=== PATIENT | male | born 1955 | race Caucasian/White ===

== ENCOUNTER → 2019-09-12 | Outpatient (CLI) | payer BC ==
--- NOTE | 2019-09-12 17:14 | CONS ---
CONSULTATION REASON FOR CONSULTATION: Sleep apnea. This is a 63-year-old male patient diagnosed having obstructive sleep apnea at least 10 years ago through [facility]. He underwent another sleep study a few years back through a sleep center in [place] and currently is using a ResMed AirSense CPAP unit which is set at a pressure of 9 cm of water. His baseline AHI is not known to me at this point, and we do not have any documentation on his original polysomnogram. He is coming to establish himself here at the sleep center. He lives locally in [place]. He has a history of RLS and currently is taking low-dose methadone and Horizant. As for his sleep apnea, the patient is compliant with his treatment. He has been utilizing his CPAP every night without any major difficulties. Based on the compliance data, the patient has been averaging around 6.1 hours of CPAP use per night and his CPAP use for more than 4 hours is above 70%. His leak is 42 L/minute and his AHI is down to 2.5. He is going to bed around midnight and wakes up at 7:00 in the morning. He is refreshed during the day. He does not fall asleep during day-to-day activities. He does not fall asleep while driving. He is restless in the lower extremities and he has been given different regimens. He failed Mirapex. The most successful regimen for him has been a combination of gabapentin and low-dose methadone. His current [place] score is 9. No recent weight gain or weight loss. No history of substance abuse. No history of alcoholism. No episodes of waking up in the middle of night choking or gasping for air. He is using a full-face mask. No snoring while on CPAP therapy. No chest pain, shortness of breath, palpitation, angina or heartburn. PAST MEDICAL HISTORY: 1. Obstructive sleep apnea. 2. Primary restless legs syndrome. 3. Hypertension. SURGICAL HISTORY: Surgical history includes left orbital reconstruction surgery and septum surgery. DRUG ALLERGIES: NOT KNOWN. OUTPATIENT MEDICATION LIST: Outpatient medication list includes methadone, Horizant, simvastatin and losartan. SOCIAL HISTORY: Nonsmoker. No history of alcoholism. No history of IV drugs. FAMILY HISTORY: Positive for the RLS. Negative for sleep apnea. Also hypertension runs in the family. REVIEW OF SYSTEMS: Fourteen-point review of systems was done. Positive findings were all mentioned above in the history of present illness. No sleep paralysis. No nightmares. No hallucinations. No cataplexy. No sleepwalking or sleeptalking. No anxiety or panic attacks. No palpitation. No heartburn. No shortness breath or chest pain during sleep. PHYSICAL EXAMINATION: VITAL SIGNS: BP is 149/89, pulse 69, respirations 16, temperature 98.2, saturation 99% on room air. [place] Score is 9. BMI is 35.2. Neck size is 16-3/4 inches. Weight is 232. Height is 5 feet 8 inches. GENERAL APPEARANCE: Calm, comfortable. HEAD: Atraumatic, normocephalic. NECK: Supple. No JVD. No goiter or neck masses. Mallampati class IV. LUNGS: Clear to auscultation. HEART: Heart sounds are regular rate and rhythm. Normal S1, S2. No S3, S4. No murmurs. ABDOMEN: Soft, nontender. No organomegaly. EXTREMITIES: No edema. No cyanosis or clubbing. NEUROLOGIC: Alert and oriented x3. No focal neurological deficits. PSYCHIATRIC: Negative for anxiety or depression. IMPRESSION: 1. Obstructive sleep apnea, currently on CPAP pressure of 9; successfully treated. Compliance data was checked. Some increase in the air leaks around the full-face mask. 2. Primary restless legs syndrome. Currently on a combination of gabapentin and methadone, low dose. 3. Hypertension. 4. Hyperlipidemia. PLAN: 1. Will keep the same CPAP pressure. 2. Add EPR of 3. 3. Offer this patient an AirFit F20 large-sized full-face mask. 4. Obtain copy of the previous polysomnogram that was done in [place], [place]. 5. Continue Horizant and methadone. 6. Implement good sleep hygiene measures. 7. Avoid alcoholic beverages late at night time. 8. Encourage weight loss. 9. See me back in a year's time in followup, earlier if needed. MMODL / IJN: [id number] /
== END ==
LOC: SLEEP 13:32
PROVIDERS: ATTEND Internal Medicine Critical Care Medicine
DX: G47.33 Obstructive sleep apnea (adult) (pediatric) (principal); G25.81 Restless legs syndrome; I10 Essential (primary) hypertension; E78.5 Hyperlipidemia, unspecified; Z99.89 Dependence on other enabling machines and devices; Z79.899 Other long term (current) drug therapy
CPT/HCPCS: 99211

== ENCOUNTER → 2020-09-10 | Outpatient (CLI) | payer BC ==
--- NOTE | 2020-09-10 16:34 | PN ---
PROGRESS NOTE A 62-year-old male patient with known history of obstructive sleep apnea coming in for an annual check. The patient continues to use CPAP at a pressure of 9 cm of water. The patient is doing intermittent fasting and the patient has lost a significant amount of weight in the order of 30 pounds. In terms of sleep apnea treatment, the patient continues to be on a CPAP pressure of 9 cm of water. His numbers look great. He is averaging around 5.8 hours of CPAP use per night. He is using the machine every night. Leak is in order of 15 L/minute and his AHI is down to 1.7 while on treatment and the patient is using an Air Fit F20 medium-sized full-face mask. He has no major hypersomnia or sleepiness during the day. No chest pain. No shortness of breath. No angina. No palpitation. He does deny falling asleep while driving his car. He has primary restless legs syndrome. He is taking a combination of methadone and Neurontin. Medication otherwise remain unchanged. REVIEW OF SYSTEMS: Fourteen-point review of system was done positive findings are mentioned in history of present illness. BP 144/78, pulse 62, respirations 16, temperature 97.8, saturation 99% on room air. Height is 5, 8 inches, weight is 206 and BMI 31.3. GENERAL APPEARANCE: Calm, comfortable. HEAD: Atraumatic, normocephalic. NECK: Supple. No JVD. No goiter or neck masses. LUNGS: Clear to auscultation. HEART: Sounds are regular rate and rhythm, normal S1, S2. No murmurs. ABDOMEN: Soft, nontender, no organomegaly. EXTREMITIES: No edema, no cyanosis or clubbing. NEUROLOGIC: Awake and alert. There is no focal neurological deficits. PSYCHIATRIC: Negative for anxiety or depression. IMPRESSION: 1. Obstructive sleep apnea, currently on CPAP therapy with successful treatment. Compliance data was checked and the numbers look great. 2. RLS. 3. Hypertension. PLAN: The patient is well treated. RLS symptoms are inactive and stable. Sleep apnea is well treated. I offered another AirFit F20 large size full-face mask. I also gave him a DreamWear full-face mask to try. See me back in a year's time in followup. I am very glad to see that the patient has already lost around 30 pounds since his last evaluation. Continue further weight loss. Will continue to follow. MMODL / IJN: [id number] /
== END | disposition home or self-care (01) ==
LOC: SLEEP 13:33
PROVIDERS: ATTEND Internal Medicine Critical Care Medicine
DX: G47.33 Obstructive sleep apnea (adult) (pediatric) (principal); G25.81 Restless legs syndrome; I10 Essential (primary) hypertension; Z99.89 Dependence on other enabling machines and devices

== ENCOUNTER 2020-09-30 16:06 | Emergency (ER) | payer BC ==
[2020-09-30 16:21] VITALS: BP 158/92; PULSE 98; RESP 18; TEMP 99
[2020-09-30 17:03] LABS: Basophils % (A) 1 %; Eosinophils % (A) 0 %; HCT 45.9 % (39.0-53.0); HGB 15.2 gm/dL (13.0-17.5); Lymphocytes # (A) 0.8 k/uL (1.0-4.8); Lymphocytes % (A) 20 %; MCH 29.6 pg (25.0-35.0); MCHC 33.1 g/dL (31.0-37.0); MCV 89.4 fL (80.0-100.0); Mean Platelet Volume 7.7; Monocytes # (A) 0.4 k/uL (0-1.0); Monocytes % (A) 10 %; Neutrophils # (A) 2.8 k/uL (1.3-7.7); Neutrophils % (A) 67 %; Platelet Count 187 k/uL (150-450); RBC 5.14 m/uL (4.30-5.90); RDW 12.8 % (11.5-15.5); WBC 4.1 k/uL (3.8-10.6)
[2020-09-30 17:18] LABS: ALT 22 U/L (4-49); AST 27 U/L (17-59); African American GFR (CKD) >90 (>60 ml/min/1.73 sqM); Albumin 4.1 g/dL (3.5-5.0); Alkaline Phosphatase 77 U/L (38-126); Anion Gap 6 mmol/L; Blood Urea Nitrogen 13 mg/dL (9-20); C Reactive Protein 13.5 mg/L (<10.0); Carbon Dioxide 27 mmol/L (22-30); Chloride 100 mmol/L (98-107); Glucose 108 mg/dL (74-99); LDH 457 U/L (313-618); Magnesium 2.1 mg/dL (1.6-2.3); Non-African American GFR(CKD) >90 (>60 ml/min/1.73 sqM); Potassium 4.3 mmol/L (3.5-5.1); Sodium 133 mmol/L (137-145); Total Bilirubin 0.4 mg/dL (0.2-1.3)
--- NOTE | 2020-09-30 17:38 | XR ---
EXAMINATION TYPE: XR chest 2V DATE OF EXAM: 09/30/2020 COMPARISON: HISTORY: Shortness of breath TECHNIQUE: Frontal and lateral views of the chest are obtained. FINDINGS: There is no focal air space opacity, pleural effusion, or pneumothorax seen. The cardiac silhouette size is within normal limits. The osseous structures are intact. Patient is rotated. Rig ht hemidiaphragm is elevated. IMPRESSION: No acute cardiopulmonary process.
[2020-09-30] MEDS ORDERED: DEXAMETHASONE SOD PHOSPHATE 10 MG/ML 1 ML VIAL IV STA (18:27)
--- NOTE | 2020-09-30 18:32 | ED ---
URI HPI - General Chief Complaint: Upper Respiratory Infection Stated Complaint: +COVID, Weakness Time Seen by Provider: 09/30/20 16:20 Source: patient, RN notes reviewed Mode of arrival: ambulatory Limitations: no limitations - History of Present Illness Initial Comments: 64-year-old male presents emergency Department with chief complaint of not feeling well. Patient states that he tested positive for covid 10 days ago. Patient states that that he was feeling okay was states today he developed shortness breath increased congestion. Patient states that his been taken Tylenol twice daily. Patient has been taken vitamins as directed at home he has been in contact with his PCP. Patient has no significant long history states that he's actually been more healthy than his never been states that he doesn't exercise, losing weight. Patient denies any current chest pain no headache no dizziness or neck stiffness. Patient has no GI symptoms. - Related Data Previous Rx's Medication Instructions Recorded Dexamethasone 6 mg PO DAILY #3 tablet 09/30/20 Allergies Allergy/AdvReac Type Severity Reaction Status Date / Time No Known Allergies Allergy Verified 09/30/20 16:21 Review of Systems ROS Statement: Those systems with pertinent positive or pertinent negative responses have been documented in the HPI. ROS Other: All systems not noted in ROS Statement are negative. Past Medical History Past Medical History: Hyperlipidemia, Hypertension History of Any Multi-Drug Resistant Organisms: None Reported Past Surgical History: Appendectomy Additional Past Surgical History / Comment(s): eye surgery, nasal surgery. Past Psychological History: No Psychological Hx Reported Smoking Status: Never smoker Past Alcohol Use History: Rare Past Drug Use History: None Reported General Exam Limitations: no limitations General appearance: alert, in no apparent distress Head exam: Present: atraumatic, normocephalic, normal inspection Eye exam: Present: normal appearance, PERRL, EOMI. Absent: scleral icterus, conjunctival injection, periorbital swelling ENT exam: Present: normal exam, normal oropharynx, mucous membranes moist Neck exam: Present: normal inspection, full ROM. Absent: tenderness, meningismus, lymphadenopathy Respiratory exam: Present: normal lung sounds bilaterally. Absent: respiratory distress, wheezes, rales, rhonchi, stridor Cardiovascular Exam: Present: regular rate, normal rhythm, normal heart sounds. Absent: systolic murmur, diastolic murmur, rubs, gallop, clicks GI/Abdominal exam: Present: soft, normal bowel sounds. Absent: distended, tenderness, guarding, rebound, rigid Neurological exam: Present: alert, oriented X3, CN II-XII intact Skin exam: Present: warm, dry, intact, normal color. Absent: rash Course Vital Signs 09/30/20 16:18 Temperature 99.0 F Pulse Rate 98 Respiratory 18 Rate Blood Pressure 158/92 O2 Sat by Pulse 97 Oximetry Medical Decision Making - Medical Decision Making X-rays unremarkable labs unremarkable d-dimer is negative. Patient will continue supportive treatment at home return parameters were discussed. - Lab Data Result diagrams: 09/30/20 16:55 09/30/20 16:55 Lab Results 09/30/20 09/30/20 09/30/20 Range/Units 16:55 16:55 16:55 WBC 4.1 (3.8-10.6) k/uL RBC 5.14 (4.30-5.90) m/uL Hgb 15.2 (13.0-17.5) gm/dL Hct 45.9 (39.0-53.0) % MCV 89.4 (80.0-100.0) fL MCH 29.6 (25.0-35.0) pg MCHC 33.1 (31.0-37.0) g/dL RDW 12.8 (11.5-15.5) % Plt Count 187 (150-450) k/uL MPV 7.7 Neutrophils % 67 % Lymphocytes % 20 % Monocytes % 10 % Eosinophils % 0 % Basophils % 1 % Neutrophils # 2.8 (1.3-7.7) k/uL Lymphocytes # 0.8 L (1.0-4.8) k/uL Monocytes # 0.4 (0-1.0) k/uL Eosinophils # 0.0 (0-0.7) k/uL Basophils # 0.0 (0-0.2) k/uL D-Dimer 0.45 (<0.60) mg/L FEU Sodium 133 L (137-145) mmol/L Potassium 4.3 (3.5-5.1) mmol/L Chloride 100 (98-107) mmol/L Carbon Dioxide 27 (22-30) mmol/L Anion Gap 6 mmol/L BUN 13 (9-20) mg/dL Creatinine 0.73 (0.66-1.25) mg/dL Est GFR (CKD-EPI)AfAm >90 (>60 ml/min/1.73 sqM) Est GFR (CKD-EPI)NonAf >90 (>60 ml/min/1.73 sqM) Glucose 108 H (74-99) mg/dL Plasma Lactic Acid Sony (0.7-2.0) mmol/L Calcium 9.0 (8.4-10.2) mg/dL Magnesium 2.1 (1.6-2.3) mg/dL Total Bilirubin 0.4 (0.2-1.3) mg/dL AST 27 (17-59) U/L ALT 22 (4-49) U/L Alkaline Phosphatase 77 (38-126) U/L Lactate Dehydrogenase 457 (313-618) U/L C-Reactive Protein 13.5 H (<10.0) mg/L Total Protein 7.0 (6.3-8.2) g/dL Albumin 4.1 (3.5-5.0) g/dL 09/30/20 Range/Units 16:55 WBC (3.8-10.6) k/uL RBC (4.30-5.90) m/uL Hgb (13.0-17.5) gm/dL Hct (39.0-53.0) % MCV (80.0-100.0) fL MCH (25.0-35.0) pg MCHC (31.0-37.0) g/dL RDW (11.5-15.5) % Plt Count (150-450) k/uL MPV Neutrophils % % Lymphocytes % % Monocytes % % Eosinophils % % Basophils % % Neutrophils # (1.3-7.7) k/uL Lymphocytes # (1.0-4.8) k/uL Monocytes # (0-1.0) k/uL Eosinophils # (0-0.7) k/uL Basophils # (0-0.2) k/uL D-Dimer (<0.60) mg/L FEU Sodium (137-145) mmol/L Potassium (3.5-5.1) mmol/L Chloride (98-107) mmol/L Carbon Dioxide (22-30) mmol/L Anion Gap mmol/L BUN (9-20) mg/dL Creatinine (0.66-1.25) mg/dL Est GFR (CKD-EPI)AfAm (>60 ml/min/1.73 sqM) Est GFR (CKD-EPI)NonAf (>60 ml/min/1.73 sqM) Glucose (74-99) mg/dL Plasma Lactic Acid Sony 1.2 (0.7-2.0) mmol/L Calcium (8.4-10.2) mg/dL Magnesium (1.6-2.3) mg/dL Total Bilirubin (0.2-1.3) mg/dL AST (17-59) U/L ALT (4-49) U/L Alkaline Phosphatase (38-126) U/L Lactate Dehydrogenase (313-618) U/L C-Reactive Protein (<10.0) mg/L Total Protein (6.3-8.2) g/dL Albumin (3.5-5.0) g/dL Disposition Clinical Impression: COVID-19 Disposition: HOME SELF-CARE Condition: Stable Instructions (If sedation given, give patient instructions): Upper Respiratory Infection (ED) Additional Instructions: Please return to the Emergency Department if symptoms worsen or any other concerns. Prescriptions: Dexamethasone 6 mg PO DAILY #3 tablet Is patient prescribed a controlled substance at d/c from ED?: No Referrals: Neil Patel DO [Primary Care Provider] - 1-2 days Time of Disposition: 18:32
[2020-10-01 00:26] LABS: Ferritin 383.7 ng/mL (22.0-322.0)
== END 2020-09-30 19:07 | disposition home or self-care (01) ==
LOC: EC 16:06
DX: U07.1 COVID-19 (principal)
CPT/HCPCS: 36415; 85379; 80053; 82728; 83605; 83615; 83735; 85025; 86140; 71046; 99285; 96374; J1100

== ENCOUNTER → 2021-09-16 | Outpatient (CLI) | payer BC ==
--- NOTE | 2021-09-16 17:51 | PN ---
PROGRESS NOTE Damian is 65 coming in for a routine compliancy check. He is currently working in a home. He has taken his Covid 19 shot and the patient has been infected with Covid 19 at [facility] of last year. He is doing well on a CPAP. He is feeling fatigued and tired, which he relates to Covid 19 infection. No major hypersomnia or sleepiness. I checked the CPAP unit. He is currently on a pressure of 9. He is using AirFit F20 large-sized full-face mask and a mask needs to be replaced knowing that the mask is wrapped and torn. Based on a 30-day compliancy, the patient has been averaging around 7 hours of CPAP use per night and CPAP use for more than 4 hours is at 99%. His AHI is down to 0.8. His leak in the order of 12 L/minute. No major hypersomnia or sleepiness during the day. No other new complaints otherwise for now. His weight is down by around 11 pounds since last year. PHYSICAL EXAMINATION: Vital signs: BP is 169/89, pulse 57, respirations 16, temperature 96.9, saturation 99% on room air. Height is 5 feet 8 inches, weight is 200, BMI 29.9. [place] score is at 5. General appearance: Calm, comfortable. Head is atraumatic, normocephalic. Neck is supple. No JVD. No goiter or neck masses. Lungs diminished, otherwise clear. Heart sounds are regular rate and rhythm, normal S1, S2. No murmurs. Abdomen soft, nontender. No organomegaly. Extremities: No edema, no cyanosis or clubbing. IMPRESSION: 1. Symptomatic MATT, currently undergoing successful CPAP therapy at a pressure of 9 cm of water. 2. Hypersomnia, improved, [place] score is down to 5. 3. RLS. 4. Hypertension. 5. Covid 19 infection back in September of 2020. PLAN: 1. Continue CPAP therapy at the same level of pressure. 2. Provide the patient AirFit F20 full-face mask. 3. Provide the patient climate line. 4. Refill his filters and rest of the supplies. 5. Encourage weight loss. Continue CPAP therapy at same level of pressure. Monitor the blood pressure. See me back in a year's time in followup. Treatment successful for now. MMODL / IJN: [id number] /
== END ==
LOC: SLEEP 13:11
PROVIDERS: ATTEND Internal Medicine Critical Care Medicine
DX: G47.33 Obstructive sleep apnea (adult) (pediatric) (principal); G25.81 Restless legs syndrome; I10 Essential (primary) hypertension; Z86.16 Personal history of COVID-19

== ENCOUNTER → 2024-02-15 | Outpatient (CLI) | payer MEDICARE ==
--- NOTE | 2024-02-15 23:32 | US ---
EXAMINATION TYPE: US groin RT DATE OF EXAM: 02/15/2024 COMPARISON: NONE CLINICAL INDICATION: Male, 68 years old with history of R19.00 INTRA ABD AND PELVIC SWELLING; Patient has palpable area at groin for 1 month. States that it is not painful and that he can sometimes feel it move. TECHNIQUE: Scanned patients palpable area at AOC (right groin) FINDINGS: Valsalva maneuver used, there is a hypoechoic area seen with movement. The neck of this a ruba measures 0.9cm. Possible inguinal hernia vs other etiology. IMPRESSION: 1. Right inguinal hernia suspected.
--- NOTE | 2024-02-15 23:34 | US ---
EXAMINATION TYPE: US scrotum with doppler. Grayscale and color Doppler Duplex imaging performed of pepe peterson scrotum. DATE OF EXAM: 02/15/2024 COMPARISON: NONE CLINICAL INDICATION: Male, 68 years old with history of N50.82 SCROTAL PAIN; Scrotal pain for one mon th. Hx of vasectomy EXAM MEASUREMENTS: TESTICLES: Right Testicle: 4.3 x 3.4 x 2.2 cm Left Testicle: 4.2 x 3.1 x 1.9 cm EPIDIDYMIS HEAD: Right Epididymis: 0.8 x 0.8 cm Left Epididymis: 0.9 x 1.1 cm Doppler performed to assess for testicular vascularity; good bilateral color flow and waveforms are s een. There is no evidence of testicular torsion. Presence of hydroceles: Bilateral Presence of varicoceles: Bilateral Left epididymal head cyst= 0.4 x 0.5 x 0.3 cm IMPRESSION: 1. Tiny left epididymal cyst. 2. Bilateral hydroceles
== END | disposition home or self-care (01) ==
LOC: RADUSWWP 09:17
PROVIDERS: ATTEND Family Medicine
DX: N50.3 Cyst of epididymis (principal); N43.3 Hydrocele, unspecified; R19.00 Intra-abdominal and pelvic swelling, mass and lump, unspecified site; N50.82 Scrotal pain
CPT/HCPCS: 76870; 93975

== ENCOUNTER → 2024-03-06 | Outpatient (CLI) | payer MEDICARE ==
[2024-03-06 17:26] LABS: Basophils # (A) 0.03 X 10*3/uL (0.00-0.10); Basophils % (A) 0.5 %; Eosinophils # (A) 0.39 X 10*3/uL (0.04-0.35); Eosinophils % (A) 6.4 %; HCT 42.4 % (39.6-50.0); Lymphocytes # (A) 1.47 X 10*3/uL (0.90-5.00); Lymphocytes % (A) 24.3 %; MCH 31.3 pg (27.0-32.0); MCV 94.6 FL (80.0-97.0); Mean Platelet Volume 10.8 FL (9.5-12.2); Monocytes # (A) 0.61 X 10*3/uL (0.20-1.00); Monocytes % (A) 10.1 %; NRBC Per 100 WBC 0 X 10*3/uL (0.00-0.01); Neutrophils # (A) 3.53 X 10*3/uL (1.80-7.70); Neutrophils % (A) 58.4 %; Platelet Count 214 X 10*3/uL (140-440); RBC 4.48 X 10*6/uL (4.40-5.60); WBC 6.05 X 10*3/uL (4.50-10.00)
== END | disposition home or self-care (01) ==
LOC: LABPAT 10:19
PROVIDERS: ATTEND Surgery
DX: Z01.818 Encounter for other preprocedural examination (principal); K40.90 Unilateral inguinal hernia, without obstruction or gangrene, not specified as recurrent; R00.1 Bradycardia, unspecified
CPT/HCPCS: 36415; 85025; 86850; 86900; 86901; 93005